=== PATIENT | female | born 1985 | race Caucasian/White ===

== ENCOUNTER 2017-05-15 22:05 | Emergency (ER) | payer MEDICAID ==
[2017-05-15 22:13] VITALS: TEMP 97.7
[2017-05-15] MEDS ORDERED: GENTAMICIN 20 MG/2 ML IM ONE (23:20)
[2017-05-15] MEDS ORDERED: AZITHROMYCIN 250 MG TAB PO ONE (23:20)
--- NOTE | 2017-05-15 23:25 | EDPHY ---
H & P Stated Complaint: c/o vaginal itching burning x 2 weeks, also possible insect bite on chest Time Seen by Provider: 05/15/17 23:10 HPI/ROS: Chief Complaint: Vaginal discharge HPI: 32-year-old woman presenting complaining of vaginal discharge for the last 2-3 weeks. Patient states that she had unprotected sexual intercourse 3 weeks ago. She does have a history of chlamydial infection in the past. Does not believe she is as she has had a tubal ligation. Has had minimal pain mostly vaginal discharge and irritation. No rashes or lesions. No fevers or chills. No nausea or vomiting. ROS: 10 point Review of Systems is negative except as noted in the HPI. PMH: Chlamydia Social History: Denies smoking, denies alcohol, denies drug use Family History: non-contributory Physical Exam: Gen: Awake, Alert, No Distress HEENT: Nose: no rhinorrhea Eyes: PERRLA, EOMI Mouth: Moist mucosa Neck: Supple, no JVD Chest: nontender, lungs clear to auscultation Heart: S1, S2 normal, no murmur Abd: Soft, non-tender, no guarding Back: no CVA tenderness, no midline tenderness Ext: no edema, non-tender Skin: no rash Neuro: CN II-XII intact, Sensation grossly intact, Strength 5/5 in bilateral upper and lower extremities - Medical/Surgical History Hx Asthma: No Hx Chronic Respiratory Disease: No Hx Diabetes: No Hx Cardiac Disease: No Hx Renal Disease: No Hx Cirrhosis: No Hx Alcoholism: No Hx HIV/AIDS: No Hx Splenectomy or Spleen Trauma: No Other PMH: insomnia, orif bilat ankles, L knee replacement - Social History Smoking Status: Current every day smoker Constitutional: Initial Vital Signs Temperature (C) 36.5 C 05/15/17 22:08 Heart Rate 88 05/15/17 22:08 Respiratory Rate 16 05/15/17 22:08 Blood Pressure 116/77 05/15/17 22:08 O2 Sat (%) 98 05/15/17 22:08 O2 Delivery Mode Room Air Allergies/Adverse Reactions: Penicillins Allergy (Verified 05/15/17 22:13) Home Medications: Medication Instructions Recorded [facility] 05/15/17 [facility] 05/15/17 Medical Decision Making ED Course/Re-evaluation: 32-year-old presenting with symptoms consistent with a vaginitis, possibly sexually transmitted. She has not have any abdominal pain. No adnexal tenderness on examination. No findings suggestive of PID at this time. A dirty catch GC and chlamydia have been sent. Will treat her presumptively with azithromycin. Patient is penicillin allergic and has had anaphylaxis with this. Is not sure if she has ever had cephalosporins. Will give her IM gentamicin to treat as well. Will refer for outpatient follow-up. Departure - Departure Disposition: Home, Routine, Self-Care Clinical Impression: STD (female) Condition: Good Instructions: Sexually Transmitted Diseases (ED), Safe Sex (ED) Additional Instructions: Follow up with the [facility] in 3-4 days for any concerns. Referrals: [facility],. [Clinic] - As per Instructions
[2017-05-15] MEDS ORDERED: ONDANSETRON DISINTEGRATING 4 MG TAB ONE (23:37)
[2017-05-15] MEDS ORDERED: GENTAMICIN SULFATE 80 MG/2 ML VIAL IM ONE (23:45)
[2017-05-15] MEDS ORDERED: ONDANSETRON DISINTEGRATING 4 MG TAB PO ONE (23:46)
[2017-05-16 00:50] VITALS: BP 128/62; PULSE 80; RESP 20; O2SAT 92
[2017-05-16 13:09] LABS: CHLAMYDIA AMPLIFICATION GENPRB NEGATIVE (NEGATIVE)
== END 2017-05-16 00:50 | disposition home or self-care (01) ==
DX: A64 Unspecified sexually transmitted disease (principal); F17.200 Nicotine dependence, unspecified, uncomplicated
CPT/HCPCS: L4350

== ENCOUNTER 2017-05-16 06:26 | Emergency (ER) | payer MEDICAID ==
[2017-05-16 06:39] VITALS: BP 107/64; PULSE 68; RESP 16; TEMP 97.5; O2SAT 97
--- NOTE | 2017-05-16 07:37 | EDPHY ---
H & P Time Seen by Provider: 05/16/17 07:26 HPI/ROS: CHIEF COMPLAINT: I think I sprained my ankle HISTORY OF PRESENT ILLNESS: Patient was here yesterday for vaginal discharge. She slept last night on the street and she currently is homeless. She tells me that she thinks she twisted her left ankle about an hour ago and that hurts laterally, but she was able to walk into the room. She denies homicidal or suicidal ideation or hallucinations. Denies overdose. Does admit to ongoing depression. REVIEW OF SYSTEMS: Eye: no change in vision ENT: no sore throat Cardiac: no chest pain or syncope Pulmonary: no cough or SOB Abdomen: no vomiting, diarrhea, abdominal pain Musculoskeletal: See HPI Skin: no rash Neuro: no headache Constitutional: no fever : no urinary symptoms A comprehensive 10 point review of systems is otherwise negative aside from elements mentioned in the history of present illness. PAST MEDICAL HISTORY: Previous ankle surgery from fracture, left knee surgery Social history: Denies alcohol, homeless. smoker. General Appearance: Sleepy but easily awakens to voice, cooperative. Eyes: No scleral icterus. ENT, Mouth: Normal mucous membranes. Respiratory: Normal respiratory effort, breath sounds equal, lungs are clear to auscultation. Cardiovascular: Regular rate and rhythm. Gastrointestinal: Abdomen is soft and non tender. Neurological: Alert and oriented x3. Normally conversant. Face symmetric, normal movement and sensation in all extremities. Skin: Warm and dry, no rashes. No redness or warmth or skin changes over the lateral ankle. Musculoskeletal: Well-healed surgical incision left lateral ankle, swelling and tenderness lateral malleolus. No proximal tib-fib tenderness, normal range of motion of knee and ankle, normal motor and sensory and dorsalis pedis in the left foot. Psychiatric: Not agitated. See HPI. Emergency Department course/MDM: Left ankle x-ray: Personally reviewed and interpreted at 8:23 a.m. shows old hardware but no new findings. Patient was ambulatory into her room. Air cast offered, primary care follow-up. Does not appear to meet criteria for mental health hold. Does not appear to be a danger to self or others or gravely disabled. 841: ambulatory without antalgic gait. Smoking Status: Current every day smoker Constitutional: Initial Vital Signs Temperature (C) 36.4 C 05/16/17 06:35 Heart Rate 68 07/17/17 06:35 Respiratory Rate 16 05/16/17 06:35 Blood Pressure 107/64 05/16/17 06:35 O2 Sat (%) 97 05/16/17 06:35 O2 Delivery Mode Room Air Allergies/Adverse Reactions: Penicillins Allergy (Verified 05/15/17 22:13) Home Medications: Medication Instructions Recorded [facility] 05/15/17 [facility] 05/15/17 Departure - Departure Disposition: Home, Routine, Self-Care Clinical Impression: Left ankle pain Qualifiers: Chronicity: acute Qualified Code(s): M25.572 - Pain in left ankle and joints of left foot Condition: Good Instructions: Ankle Sprain (ED) Referrals: [facility],. [Clinic] - As per Instructions
== END 2017-05-16 08:48 | disposition home or self-care (01) ==
LOC: EEVIPCON 06:26
DX: M25.572 Pain in left ankle and joints of left foot (principal); F17.200 Nicotine dependence, unspecified, uncomplicated
CPT/HCPCS: L4350